=== PATIENT | female | born 1965 | race Caucasian/White ===

== ENCOUNTER 2019-01-19 21:16 | Emergency (ER) | payer SELFPAY ==
[~2019-01-19] VITALS: Ht 165.1 cm; Wt 83.9 kg
[2019-01-19 21:30] VITALS: BP 114/73
--- NOTE | 2019-01-19 21:30 | NUR ---
ED Nurse Note: PT FROM HOME WITH C/O LEFT SIDE PAIN AND CONGESTION X 4 WEEKS WITH INTERMITTENT FEVERS AND VOMITING, ALSO. PAIN AT 8/10.
--- NOTE | 2019-01-19 21:50 | NUR ---
ED Nurse Note: BLOOD AND URINE SPECIMEN SENT TO LAB
--- NOTE | 2019-01-19 21:51 | Emergency Room Report ---
History of Present Illness General Chief Complaint: Abdominal Pain Source: Patient Present Illness HPI This is a 53-year-old female with no past medical history. She presents with chief complaint of left-sided abdominal pain. Onset for 4 weeks but worsened now. She did come in because she has no insurance. Pain is left side. No radiation. Worse with eating. Has nausea and vomiting now. Pain is 8 out of 10. Worse with palpation. Worse with movement. Better with rest. Denies any dysuria frequency. Denies any hematuria. Allergies: Coded Allergies: Mushroom (Unverified Allergy, Unknown, 01/19/19) Uncoded Allergies: MUSHROOMS (Allergy, Unknown, 01/19/19) Patient History Past Medical History: see triage record, old chart reviewed Past Surgical History: none Pertinent Family History: none Social History: Denies: smoking Now: No Immunizations: other Reviewed Nursing Documentation: PMH: Agreed; PSxH: Agreed Review of Systems Eye: Denies: eye pain, blurred vision ENT: Denies: ear pain, nose congestion, throat swelling Respiratory: Denies: cough, shortness of breath Cardiovascular: Denies: chest pain, palpitations Gastrointestinal: Reports: abdominal pain, nausea, vomiting; Denies: diarrhea Musculoskeletal: Denies: back pain, joint pain Skin: Denies: rash Neurological: Denies: headache, numbness Endocrine: Denies: increased thirst, increased urine Hematologic/Lymphatic: Denies: easy bruising All Other Systems: negative except mentioned in HPI Physical Exam Vital Signs Date Time Temp Pulse Resp B/P (MAP) Pulse Ox O2 Delivery O2 Flow Rate FiO2 01/19/19 21:26 98.4 105 18 114/73 (87) 96 Vitals unremarkable Sp02 EP Interpretation: reviewed, normal General Appearance: well appearing, no apparent distress, alert Head: normocephalic, atraumatic Eyes: bilateral eye PERRL, bilateral eye EOMI ENT: hearing grossly normal, normal pharynx Neck: full range of motion, supple, no meningismus Respiratory: chest non-tender, lungs clear, normal breath sounds Cardiovascular #1: regular rate, rhythm, no murmur Gastrointestinal: normal bowel sounds, no mass, no organomegaly, no bruit, non- distended, tenderness - Left lower quadrant Musculoskeletal: back normal, gait/station normal, normal range of motion Psychiatric: mood/affect normal Medical Decision Making Diagnostic Impression: Primary Impression: Pancreatic mass Additional Impression: Hypokalemia ER Course Patient presents with abdominal pain on the left side. She has a large pancreatic mass. This is concerning for cancer. Pain is well controlled now. Her potassium is a little bit low. Hyperglycemia probably secondary to pancreatic mass. Patient will need further work-up. Lab Results Impression With hypo-kalemia CT/MRI/US Diagnostic Results CT/MRI/US Diagnostic Results : Imaging Test Ordered: CT abdomen and pelvis Impression Read by radiologist. Pancreatic tail mass measuring 10.4 x 9 x 9.7 cm. Last Vital Signs Date Time Temp Pulse Resp B/P (MAP) Pulse Ox O2 Delivery O2 Flow Rate FiO2 01/19/19 21:26 98.4 105 18 114/73 (87) 96 Status: improved Disposition: HOME, SELF-CARE Condition: Stable Scripts Hydrocodone/Acetaminophen 5-325* (HYDROCODONE/ACETAMINOPHEN 5-325*) 1 Each Tablet 1 TAB ORAL Q6H PRN for For Pain, #30 TAB 0 Refills Prov: Edi Galindo MD 01/19/19 Additional Instructions: Follow-up with your doctor within a week. You will need a referral to see a specialist. Return if worse. Edi Galindo MD Jan 19, 2019 21:51
[2019-01-19] MEDS ORDERED: Morphine Sulfate 4mg/ml Inj (IV USE ONLY) IVP ONE (22:00)
--- NOTE | 2019-01-19 22:09 | NUR ---
ED Nurse Note: PT SENT TO CT
--- NOTE | 2019-01-19 22:13 | NUR ---
ED Nurse Note: (neighbor) Idalia Mckinney- [phone]
[2019-01-19 22:14] LABS: APPEARANCE,URINE CLEAR; BILIRUBIN, URINE NEGATIVE (NEGATIVE); GLUCOSE, URINE (UA) NEGATIVE (NEGATIVE); KETONES,URINE 4+ (NEGATIVE); LEUKOCYTE ESTERASE ,URINE NEGATIVE (NEGATIVE); NITRITE,URINE NEGATIVE (NEGATIVE); PH,URINE 6 (4.5-8.0); PROTEIN,URINE NEGATIVE (NEGATIVE); UROBILINOGEN,URINE 4 MG/DL (0.0-1.0)
[2019-01-19 22:17] LABS: COLOR,URINE YELLOW
--- NOTE | 2019-01-19 22:21 | NUR ---
ED Nurse Note: pt returned from ct
[2019-01-19 22:22] LABS: BASOPHILS % (AUTO) 0.3 % (0.0-2.0); EOSINOPHILS % (AUTO) 0.3 % (0.0-3.0); HEMATOCRIT 33.5 % (37.0-47.0); HEMOGLOBIN 10.7 G/DL (12.0-16.0); LYMPHOCYTES % (AUTO) 9.7 % (20.0-45.0); MEAN CORPUSCULAR VOLUME 81 FL (80-99); MONOCYTES % (AUTO) 5.6 % (1.0-10.0); NEUTROPHILS % (AUTO) 84.2 % (45.0-75.0); PLATELET COUNT 402 K/UL (150-450); RED BLOOD COUNT 4.13 M/UL (4.20-5.40); RED CELL DISTRIBUTION WIDTH 12.7 % (11.6-14.8); WHITE BLOOD COUNT 15.2 K/UL (4.8-10.8)
[2019-01-19 22:30] LABS: ALANINE AMINOTRANSFERASE 14 U/L (12-78); ALBUMIN 1.9 G/DL (3.4-5.0); ALBUMIN/GLOBULIN RATIO 0.5 (1.0-2.7); ALKALINE PHOSPHATASE 74 U/L (46-116); ANION GAP 9 mmol/L (5-15); ASPARTATE AMINO TRANSFERASE 14 U/L (15-37); BILIRUBIN,TOTAL 0.5 MG/DL (0.2-1.0); BLOOD UREA NITROGEN 7 mg/dL (7-18); CALCIUM 9.1 MG/DL (8.5-10.1); CARBON DIOXIDE 28 MMOL/L (21-32); CHLORIDE 99 MMOL/L (98-107); CREATININE 0.9 MG/DL (0.55-1.30); POTASSIUM 2.8 MMOL/L (3.5-5.1); SODIUM 136 MMOL/L (136-145)
[2019-01-19 23:06] VITALS: BP 105/84
[2019-01-19] MEDS ORDERED: HYDROCODON-ACE1 EA15 ORAL (23:46)
[2019-01-20 00:03] VITALS: BP 107/57
--- NOTE | 2019-01-20 00:03 | NUR ---
ER DISCHARGE NOTE: Patient is cleared to be discharged per ERMD, pt is aox4, on room air, with stable vital signs. pt was given dc and prescription instructions, pt was able to verbalize understanding, pt id band and iv site removed without complications. pt is able to ambulate with steady gait. pt took all belongings.
--- NOTE | 2019-01-20 10:00 | Diagnostic Imaging Report ---
Indication: Abdominal pain, intermittent fevers and vomiting, left-sided pain and congestion Technique: Spiral acquisitions obtained through the abdomen and pelvis. No oral contrast utilized, per emergency room physician request No IV contrast utilized, per referring physician request.. Multiplanar reconstructions were generated. Total dose length product 1074.79 mGycm. CTDIvol(s) 19.51 mGy. Dose reduction achieved using automated exposure control Comparison: None Findings: Exam is extremely limited due to lack of enteric and IV contrast administration. There is a soft tissue attenuation mass posterior to the stomach which measures 10 cm transverse by 9 cm AP by 10 cm craniocaudad. It demonstrates somewhat heterogeneous attenuation. The pancreatic body and tail are completely obscured. It is contiguous with but appears to be from the posterior wall of the stomach by a fat plane. It is contiguous with the proximal degenerative but also appears to be by a fat plane. Surrounding inflammatory changes but not the mass itself are contiguous with the hepatic flexure and proximal descending colon. There is some infiltration of the fat surrounding the mass. There is a calcification within the mass. The lack of IV contrast limits assessment of the solid organs. The liver demonstrates some focal fatty infiltration in the usual location adjacent to the falciform ligament, otherwise grossly unremarkable. The gallbladder, bile ducts are grossly unremarkable. Spleen is unremarkable, but there are splenic hilar varices. The adrenals, kidneys are unremarkable. There is a retroaortic left renal vein. No retroperitoneal or mesenteric mass or adenopathy. Normal uterus and ovaries. No pelvic mass or adenopathy. Normal appendix. There are a few colonic diverticula. No evidence of diverticulitis. No small bowel distention. No free or loculated intraperitoneal gas or fluid. The distal esophagus is unremarkable. The included lung bases are clear. The bones are unremarkable except for degenerative changes of the lumbosacral junction. Impression: 10 cm upper abdominal mass. Possibly of pancreatic origin, given the obliteration of the pancreatic body and tail. Given the location, the possibility of a gastrointestinal stromal tumor should also be considered. Carcinoma of enteric origin and other parenchymal tumors are also in the differential. Tissue sampling is recommended. 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 No evidence of diverticulitis Incidental findings as noted, including retroaortic left renal vein, degenerative spondylosis This agrees with the preliminary interpretation provided overnight by [facility] service. The CT scanner at [facility] is accredited by the [employer] and the scans are performed using protocols designed to limit radiation exposure to as low as reasonably achievable to attain images of sufficient resolution adequate for diagnostic evaluation.
== END 2019-01-20 00:03 | disposition home or self-care (01) ==
LOC: EMR 22:07
DX: K86.9 Disease of pancreas, unspecified (principal); E87.6 Hypokalemia; Z91.018 Allergy to other foods
CPT/HCPCS: 36415; 74176; 80053; 81003; 83690; 85025; 96361; 96374; 96375; 99284; J2270; J2405; J8499

== ENCOUNTER 2019-01-22 18:55 | Emergency (ER) | payer SELFPAY ==
[~2019-01-22] VITALS: Ht 165.1 cm; Wt 81.6 kg
[~2019-01-22 18:55] MED LIST: HYDROCODON-ACE1 EA15 ORAL
[2019-01-22 19:05] VITALS: BP 115/64
--- NOTE | 2019-01-22 19:05 | NUR ---
ED Nurse Note: pt brought in by ra 826 d/t Left lower abd pain since sunday. pt is aox4, on room air. pt shows no acuts signs of distress.
[2019-01-22 19:30] LABS: APPEARANCE,URINE CLEAR; BILIRUBIN, URINE NEGATIVE (NEGATIVE); GLUCOSE, URINE (UA) NEGATIVE (NEGATIVE); KETONES,URINE 4+ (NEGATIVE); LEUKOCYTE ESTERASE ,URINE 1+ (NEGATIVE); NITRITE,URINE NEGATIVE (NEGATIVE); PH,URINE 5 (4.5-8.0); PROTEIN,URINE 1+ (NEGATIVE); UROBILINOGEN,URINE 4 MG/DL (0.0-1.0)
[2019-01-22 19:33] LABS: BASOPHILS % (AUTO) 0.3 % (0.0-2.0); EOSINOPHILS % (AUTO) 0.2 % (0.0-3.0); HEMOGLOBIN 10.9 G/DL (12.0-16.0); LYMPHOCYTES % (AUTO) 8.1 % (20.0-45.0); MEAN CORPUSCULAR VOLUME 82 FL (80-99); MONOCYTES % (AUTO) 5.6 % (1.0-10.0); NEUTROPHILS % (AUTO) 85.8 % (45.0-75.0); PLATELET COUNT 476 K/UL (150-450); RED BLOOD COUNT 4.29 M/UL (4.20-5.40); RED CELL DISTRIBUTION WIDTH 12.8 % (11.6-14.8); WHITE BLOOD COUNT 19.5 K/UL (4.8-10.8)
[2019-01-22 19:34] LABS: COLOR,URINE YELLOW
[2019-01-22 19:39] LABS: INR 1.1 (0.9-1.1)
[2019-01-22 19:42] LABS: ANION GAP 10 mmol/L (5-15); BLOOD UREA NITROGEN 7 mg/dL (7-18); CALCIUM 9.2 MG/DL (8.5-10.1); CARBON DIOXIDE 27 MMOL/L (21-32); CHLORIDE 98 MMOL/L (98-107); CREATININE 0.8 MG/DL (0.55-1.30); SODIUM 135 MMOL/L (136-145)
[2019-01-22] MEDS ORDERED: Morphine Sulfate 4mg/ml Inj (IV USE ONLY) IVP ONE (19:45)
[2019-01-22 19:46] LABS: ALANINE AMINOTRANSFERASE 13 U/L (12-78); ALBUMIN 1.9 G/DL (3.4-5.0); ALBUMIN/GLOBULIN RATIO 0.4 (1.0-2.7); ALKALINE PHOSPHATASE 73 U/L (46-116); ASPARTATE AMINO TRANSFERASE 13 U/L (15-37); BILIRUBIN,TOTAL 0.6 MG/DL (0.2-1.0)
[2019-01-22 20:50] VITALS: BP 100/60
[2019-01-22 21:08] VITALS: BP 100/60
--- NOTE | 2019-01-24 06:35 | Emergency Room Report ---
History of Present Illness General Chief Complaint: Abdominal Pain Source: Patient Present Illness HPI 53-year-old female presents ED for evaluation. Patient brought in by EMS from home. Complaining of abdominal pain. States she was seen here last week for similar pain. Had CT which showed a pancreatic mass. Patient was discharged with pain medications and instructed to follow-up as outpatient with [facility]. Patient states she has not yet made appointments to follow-up. States that she filled her prescription but has not taken the pain medication yet. She called 911 to take her to [facility] but EMS brought her here because we were closer. Pain is sharp, 8 out of 10, nonradiating. Similar nature to last time she was here. States she is passing gas and having bowel movements. Denies nausea or vomiting. No other aggravating relieving factors. Denies any other associated symptoms Allergies: Coded Allergies: Mushroom (Unverified Allergy, Unknown, 01/19/19) Uncoded Allergies: MUSHROOMS (Allergy, Unknown, 01/19/19) Patient History Past Medical History: none Past Surgical History: none Pertinent Family History: none Social History: Denies: smoking, alcohol use, drug use Now: No Immunizations: UTD Reviewed Nursing Documentation: PMH: Agreed; PSxH: Agreed Nursing Documentation-PMH Past Medical History: No Stated History Review of Systems All Other Systems: negative except mentioned in HPI Physical Exam Vital Signs Date Time Temp Pulse Resp B/P (MAP) Pulse Ox O2 Delivery O2 Flow Rate FiO2 01/22/19 18:53 97.9 100 16 112/68 (83) 97 Room Air Sp02 EP Interpretation: reviewed, normal General Appearance: no apparent distress, alert, GCS 15, non-toxic Head: normocephalic, atraumatic Eyes: bilateral eye normal inspection, bilateral eye PERRL ENT: hearing grossly normal, normal pharynx, no angioedema, normal voice Neck: full range of motion, supple/symm/no masses Respiratory: chest non-tender, lungs clear, normal breath sounds, speaking full sentences Cardiovascular #1: regular rate, rhythm, no edema Cardiovascular #2: 2+ carotid (R), 2+ carotid (L), 2+ radial (R), 2+ radial (L) , 2+ dorsalis pedis (R), 2+ dorsalis pedis (L) Gastrointestinal: normal bowel sounds, soft, non-distended, no guarding, no rebound, tenderness Rectal: deferred Genitourinary: normal inspection, no CVA tenderness Musculoskeletal: back normal, gait/station normal, normal range of motion, non- tender Neurologic: alert, oriented x3, responsive, motor strength/tone normal, sensory intact, speech normal Psychiatric: judgement/insight normal, memory normal, mood/affect normal, no suicidal/homicidal ideation Reflexes: 3+ bicep (R), 3+ bicep (L), 3+ tricep (R), 3+ tricep (L), 3+ knee (R) , 3+ knee (L) Lymphatic: no adenopathy Medical Decision Making Diagnostic Impression: Primary Impression: Pancreatic mass Additional Impression: Abdominal pain Qualified Codes: R10.13 - Epigastric pain ER Course Hospital Course 53-year-old F presents to ED with epigastric pain. recently diagnosed with pancreatic mass differential diagnosis: gastritis, SBO, cholecystits Clinical course Patient placed on stretcher. On cardiac cath technologist. After initial history and physical I ordered labs, IV fluids, pain meds Labs - noted leukocytosis, K 3.0, LFTs normal Abdomen soft. No guarding or rebound. Patient passing flatus. No clinical signs of obstruction. afebrile. stable vitals. I reviewed CT findings from prior visit. I see no reason to repeat CT imaging at this time due to excess radiation. Discussed findings with the patient. I encouraged patient to take her pain meds that were prescribed. Patient would benefit from outpatient evaluation at a tertiary facility such as [facility] which was recommended to her previously. States that she will go follow-up with them tomorrow safe for discharge for close outpatient follow-up I feel this is a highly complex case requiring extensive working including EKG/ Rhythm strip, Xray/CT/US, Blood/urine lab work, repeat exams while in ED, and administration of strong opiates/narcotics for pain control, admission to hospital or close patient follow up. Diagnosis - abdominal pain Stable and discharged to home. take pain meds as prescribed. Followup with PMD. Return to ED if symptoms recur or worsen Labs Test 01/22/19 19:13 White Blood Count 19.5 K/UL (4.8-10.8) Red Blood Count 4.29 M/UL (4.20-5.40) Hemoglobin 10.9 G/DL (12.0-16.0) Hematocrit 35.0 % (37.0-47.0) Mean Corpuscular Volume 82 FL (80-99) Mean Corpuscular Hemoglobin 25.5 PG (27.0-31.0) Mean Corpuscular Hemoglobin Concent 31.2 G/DL (32.0-36.0) Red Cell Distribution Width 12.8 % (11.6-14.8) Platelet Count 476 K/UL (150-450) Mean Platelet Volume 4.8 FL (6.5-10.1) Neutrophils (%) (Auto) 85.8 % (45.0-75.0) Lymphocytes (%) (Auto) 8.1 % (20.0-45.0) Monocytes (%) (Auto) 5.6 % (1.0-10.0) Eosinophils (%) (Auto) 0.2 % (0.0-3.0) Basophils (%) (Auto) 0.3 % (0.0-2.0) Prothrombin Time 11.2 SEC (9.30-11.50) Prothromb Time International Ratio 1.1 (0.9-1.1) Activated Partial Thromboplast Time 29 SEC (23-33) Urine Color Yellow Urine Appearance Clear Urine pH 5 (4.5-8.0) Urine Specific [place] 1.020 (1.005-1.035) Urine Protein 1+ (NEGATIVE) Urine Glucose (UA) Negative (NEGATIVE) Urine Ketones 4+ (NEGATIVE) Urine Blood 1+ (NEGATIVE) Urine Nitrite Negative (NEGATIVE) Urine Bilirubin Negative (NEGATIVE) Urine Urobilinogen 4 MG/DL (0.0-1.0) Urine Leukocyte Esterase 1+ (NEGATIVE) Urine RBC 0-2 /HPF (0 - 2) Urine WBC 0-2 /HPF (0 - 2) Urine Squamous Epithelial Cells Few /LPF (NONE/OCC) Urine Bacteria Few /HPF (NONE) Urine Mucus Many /LPF (NONE/OCC) Sodium Level 135 MMOL/L (136-145) Potassium Level 3.0 MMOL/L (3.5-5.1) Chloride Level 98 MMOL/L (98-107) Carbon Dioxide Level 27 MMOL/L (21-32) Anion Gap 10 mmol/L (5-15) Blood Urea Nitrogen 7 mg/dL (7-18) Creatinine 0.8 MG/DL (0.55-1.30) Estimat Glomerular Filtration Rate > 60 mL/min (>60) Glucose Level 141 MG/DL (74-106) Calcium Level 9.2 MG/DL (8.5-10.1) Total Bilirubin 0.6 MG/DL (0.2-1.0) Aspartate Amino Transf (AST/SGOT) 13 U/L (15-37) Alanine Aminotransferase (ALT/SGPT) 13 U/L (12-78) Alkaline Phosphatase 73 U/L (46-116) Total Protein 6.4 G/DL (6.4-8.2) Albumin 1.9 G/DL (3.4-5.0) Globulin 4.5 g/dL Albumin/Globulin Ratio 0.4 (1.0-2.7) Lipase 76 U/L (73-393) Last Vital Signs Date Time Temp Pulse Resp B/P (MAP) Pulse Ox O2 Delivery O2 Flow Rate FiO2 01/22/19 21:08 97.6 100 16 100/60 100 Room Air Status: improved Disposition: HOME, SELF-CARE Condition: Stable Referrals: NOT CHOSEN IPA/,REFERRING (PCP) [facility] Patient Instructions: Pancreatic Cancer Additional Instructions: you need to followup with [facility] to be evaluated by Oncology. Ashwin Vazquez MD Jan 24, 2019 06:35
== END 2019-01-22 21:08 | disposition home or self-care (01) ==
LOC: EDBD 18:55 → EMR 19:53
DX: K86.9 Disease of pancreas, unspecified (principal); R10.13 Epigastric pain; Z91.018 Allergy to other foods; D72.829 Elevated white blood cell count, unspecified
CPT/HCPCS: 36415; 80053; 81003; 83690; 85025; 85610; 85730; 86850; 86900; 86901; 96374; 99284; J2270; J8499